=== PATIENT | male | born 1935 | race Caucasian/White ===

== ENCOUNTER → 2024-08-06 07:53 | Outpatient (REF) | payer OTHER, SELFPAY | LOC: RAD 07:53 | PROVIDERS: ATTENDING PHYSICIAN Surgery Vascular Surgery; FAMILY PHYSICIAN Student in an Organized Health Care Education/Training Program | DX: I71.00 Dissection of unspecified site of aorta (principal) | CPT/HCPCS: 71275; 74174; Q9967 ==

== ENCOUNTER 2024-12-21 22:28 | Emergency (ER) | payer OTHER, SELFPAY ==
[2024-12-21 22:30] VITALS: BP 159/83
--- NOTE | 2024-12-21 22:41 | ED.GENMED ---
History of Present Illness
General
Chief Complaint: Skin Problem
Time Seen by Provider: 12/21/24 22:40
History of Present Illness
History of Present Illness:
TIME OF INITIAL ENCOUNTER: 10:45 PM
HPI: The patient presents due to concerns of infection of the left ankle. This is localized to about a quarter sized area to the medial aspect of the distal left lower extremity above the ankle. He has been having increasing pain at the area. He
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 Larson regularly. He was seen by in file operator who noted the area of concern but was smaller at the time. No antibiotics were started at that time.
EXAM:
GENERAL: Well appearing in no distress
HEENT: Moist oral mucosa
CARDIOVASCULAR: No murmurs, normal heart rate, regular rhythm, No chest wall tenderness
PULMONARY: No respiratory distress, breath sounds are clear and equal
ABDOMEN: Soft with no peritoneal signs, no tenderness
NEUROLOGIC: Excellent strength all extremities, no coordination deficits
PSYCHIATRIC: Appropriate mental status, normal insight and judgement
EXTREMITIES: Nontender, mild bilateral lower extremity edema, moves all extremities equally, venous stasis noted the lower extremities
SKIN: There is honey crusted lesion which is foul-smelling measuring approximately a quarter sized to the medial distal aspect of the left lower extremity above the ankle, the surrounding tissue is not cellulitic in appearance but is tender to touch
NUMBER AND COMPLEXITY OF PROBLEMS ADDRESSED AT THE ENCOUNTER
� Chronic conditions affecting care: A-fib on Eliquis, prostate cancer, AAA repair, high blood pressure
� Acute Exacerbation and/or Progression of Chronic Illness: This is an acute problem
� Differential Diagnosis includes: Wound infection, cellulitis, venous stasis, arterial insufficiency
AMOUNT AND/OR COMPLEXITY OF DATA TO BE REVIEWED AND ANALYZED
� I performed an independent evaluation of and my interpretation is:
EKG:
CT:
X-rays:
Laboratory Studies: White blood cell count is normal at 7.0, hemoglobin 12.6, bicarb 31, BUN 25
Other:
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
� Clinical information was obtained by an independent historian: I spoke to daughter at bedside
� Prescriptions/Medications Considered but not given:
� Further testing considered but not performed:
RISK OF COMPLICATIONS AND/OR MORBIDITY OR MORTALITY OF PATIENT MANAGEMENT
� Social determinants of health affecting care: Lives at home
� Discussion with other providers:
� Escalation of care including admission/observation vs risk of discharge considered: The patient has a focal area of concern measuring the size of a quarter which is foul-smelling and I did remove honey crusted appearing debris
at the site. The underlying tissue was bleeding slightly indicating viable tissue. There was surrounding tenderness however there is no associated warmth or erythema.
ANY OTHER UPDATES:
The patient has excellent dopplerable pulses to DP and PT to the left foot. Will start on antibiotics. I also sent a prescription for mupirocin to the affected area and he is to follow-up with wound care. They also have an appointment coming up
with Dr. Larson.
Past History
Past History
ED Past Medical History: Arrthythmia, Cancer, HTN and Hypercholesterolemia
ED Past Surgical History: Cardiac (Aortic dissection repair November 25, 2009 , pacemaker), Tonsilectomy and Urological
Social History
Tobacco: Non-smoker
Alcohol: None
Drug: None
Personal:
Living: with family
Phy Exam
Physical Exam
Physical Exam:
See HPI
Course
Orders/Labs/Results
Orders:
Orders
12/21/24 23:02
Acetaminophen [Tylenol] 1,000 mg PO NOW STA
12/21/24 23:17
CeFAZolin 1 GRAM [Ancef] 1 gram in 5 ml IV NOW
12/21/24 23:25
Basic Metabolic Panel Urgent
Complete Blood Count/With Diff Urgent
Wound Culture [Wound/Abscess/Other Culture] Urgent
LISA Source: Ankle
Specimen Description: Left
Date Specimen was Collected: 12/21/24
Time Specimen was Collected: 23:15
12/22/24 08:00
Mupirocin [Bactroban 2% Ointment] 1 applic TOPICAL TID
Abnormal Lab Results
12/21/24
23:25
RBC 4.11 L 10^6/uL
(4.70-6.10)
Hgb 12.6 L g/dL
(13.0-18.0)
Hct 36.7 L %
(39.0-52.0)
Absolute Lymphs (auto) 1.0 L 10^3/uL
(1.2-3.4)
Absolute Monos (auto) 0.7 H 10^3/uL
(0.1-0.6)
Lymphocytes % 13.5 L %
(20.5-51.1)
Monocytes % 9.7 H %
(1.7-9.3)
Carbon Dioxide 31 H mmol/L
(22-30)
BUN 25 H mg/dl
(9-20)
Glucose 140 H mg/dl
(70-99)
12/21/24 23:25
12/21/24 23:25
Vital Signs
Initial and Last Documented VS:
Initial Vital Signs
Temp Pulse Resp BP Pulse Ox
36.5 C 87 18 159/83 97
12/21/24 22:30 12/21/24 22:30 12/21/24 22:30 12/21/24 22:30 12/21/24 22:30
Last Documented Vital Signs
Temp Pulse Resp BP Pulse Ox
36.9 C 87 18 149/74 97
12/22/24 00:23 12/21/24 22:30 12/21/24 22:30 12/22/24 00:00 12/22/24 00:15
*Critical Care Note
Total Time (30-74mins, 75-104mins- exclusive of procedures): Not Applicable
ED Attending Note
-
Portions of this chart may have been created with voice recognition software.� Occasional wrong word or��sound alike� substitutions may have occurred due to the inherent limitations of voice recognition software.
Discharge Plan
Departure
Patient Disposition: Home (Routine Discharge)
Date of Disposition: 12/22/24
Time of Disposition: 00:12
Patient with high blood pressure during this ER visit?: Yes
Discharge Problem:
Infected wound
Instructions: Wound Care (DC), BLOOD PRESSURE
Prescriptions:
New
cephalexin 500 mg tablet
500 mg PO TID Qty: 21 0RF
mupirocin 2 % ointment
1 applic topical TID Qty: 22 0RF
No Action
Eliquis 5 MG tablet
5 mg PO BID Qty: 0 0RF
levothyroxine 25 mcg Tablet
25 mcg PO DAILY
carvedilol 6.25 mg Tablet
6.25 mg PO BID
Theragen Tablet
1 tab PO BID
Referrals:
Stephanie Morris MD [Family Provider] -
Ralph Oconnell MD [Active] - Next open appointment
Activity Restrictions/Additional Instructions:
Your heart rate is normal, temperature is normal (you do not have a fever), and your white blood cell count is normal. I checked your dorsalis pedis and posterior tibial pulses to the left lower extremity and they are both normal by Doppler. I
sent a prescription for Keflex to your pharmacy. We gave you an IV dose of Ancef here. Take Tylenol for pain. Return here if worse or other concerns. I also recommend that you follow-up with Dr. Oconnell (clinical transformation specialist). A wound culture is
pending. I am also sending a prescription to your pharmacy for an antibiotic ointment to be used 3 times a day over the wound.
Interventions
Interventions:
*Risk Screen - Suicide Last Done: 12/21/24 22:32
*General Assessment Last Done: 12/21/24 22:32
*Neglect/Abuse Screening Last Done: 12/21/24 22:32
*ED- Fall Risk Assessment Last Done: 12/22/24 00:55
*ED COVID-19 Vaccine History Last Done: 12/21/24 22:32
*Nursing Disposition Last Done: 12/22/24 00:55
ED-Skin Assessment Last Done: 12/21/24 23:47
Discharge Date and Time
Discharge Date/Time: 12/22/24 00:55
Print Language: YI
[2024-12-21 23:19] VITALS: BMI 25.5
[2024-12-21 23:22] VITALS: BP 132/60
[2024-12-21] MEDS: TYLENOL 1000 MG PO (23:37)
[2024-12-21] MEDS: ANCEF 5 IV (23:44)
[2024-12-21 23:54] LABS: % Basophils 0.7 % (0-2); % Eosinophils 2.8 % (0-6); % Immature Granulocytes 0.3 % (0-0.5); % Lymphocytes 13.5 % (20.5-51.1); % Monocytes 9.7 % (1.7-9.3); Absolute Basophils 0.1 10^3/uL (0-0.2); Absolute Eosinophils 0.2 10^3/uL (0-0.7); Absolute Monocytes 0.7 10^3/uL (0.1-0.6); Absolute Neutrophils 5.1 10^3/uL (1.4-6.5); Hematocrit 36.7 % (39.0-52.0); Hemoglobin 12.6 g/dL (13.0-18.0); Mean Corp Hgb Conc. 34.3 g/dL (33.0-37.0); Mean Corpuscular Hgb 30.7 pg (27.0-31.0); Mean Corpuscular Volume 89.3 fL (80.0-94.0); Mean Platelet Volume 9.5 fL (7.4-10.4); Nucleated Red Blood Cells % 0 % (-); Platelet Count 151 10^3/uL (130-400); Red Blood Cell Count 4.11 10^6/uL (4.70-6.10); Red Cell Dist. Width 12.7 % (11.5-14.5)
[2024-12-22] VITALS: BP 149/74
[2024-12-22 00:14] LABS: Blood Urea Nitrogen 25 mg/dl (9-20); Carbon Dioxide 31 mmol/L (22-30); Chloride 103 mmol/L (98-107); Estimated Creatinine Clearance 45 ml/min; Glucose 140 mg/dl (70-99); Sodium 137 mmol/L (135-145); eGFR > 60.00
== END 2024-12-22 00:55 | disposition home or self-care (01) ==
LOC: EMR 22:28
PROVIDERS: EMERGENCY PHYSICIAN Emergency Medicine; FAMILY PHYSICIAN Student in an Organized Health Care Education/Training Program
DX: L08.9 Local infection of the skin and subcutaneous tissue, unspecified (principal); I87.8 Other specified disorders of veins; E78.00 Pure hypercholesterolemia, unspecified; I10 Essential (primary) hypertension; Z86.79 Personal history of other diseases of the circulatory system; Z95.0 Presence of cardiac pacemaker
CPT/HCPCS: 96374; 99284; 80048; 85025; 87070; 87205

== ENCOUNTER → 2024-12-24 08:07 | Outpatient (REF) | payer OTHER, SELFPAY | LOC: WOUND 08:07 | PROVIDERS: ATTENDING PHYSICIAN Surgery; FAMILY PHYSICIAN Student in an Organized Health Care Education/Training Program | DX: I83.023 Varicose veins of left lower extremity with ulcer of ankle (principal); L97.321 Non-pressure chronic ulcer of left ankle limited to breakdown of skin; I87.2 Venous insufficiency (chronic) (peripheral); I73.9 Peripheral vascular disease, unspecified; I48.91 Unspecified atrial fibrillation; Z79.01 Long term (current) use of anticoagulants | CPT/HCPCS: 97597; 99204 ==

== ENCOUNTER → 2024-12-31 10:44 | Outpatient (REF) | payer OTHER, SELFPAY | LOC: WOUND 10:44 | PROVIDERS: ATTENDING PHYSICIAN Surgery; FAMILY PHYSICIAN Student in an Organized Health Care Education/Training Program | DX: I83.023 Varicose veins of left lower extremity with ulcer of ankle (principal); L97.321 Non-pressure chronic ulcer of left ankle limited to breakdown of skin; I87.2 Venous insufficiency (chronic) (peripheral); I73.9 Peripheral vascular disease, unspecified; I48.91 Unspecified atrial fibrillation; Z79.01 Long term (current) use of anticoagulants | CPT/HCPCS: 97597 ==

== ENCOUNTER → 2025-01-04 12:52 | Outpatient (REF) | payer OTHER, SELFPAY | LOC: DHVS 12:52 | PROVIDERS: ATTENDING PHYSICIAN Surgery | DX: I83.023 Varicose veins of left lower extremity with ulcer of ankle (principal); I73.9 Peripheral vascular disease, unspecified; I87.2 Venous insufficiency (chronic) (peripheral) | CPT/HCPCS: 93922; 93971 ==

== ENCOUNTER → 2025-01-07 14:27 | Outpatient (REF) | payer OTHER, SELFPAY | LOC: WOUND 14:27 | PROVIDERS: ATTENDING PHYSICIAN Surgery; FAMILY PHYSICIAN Student in an Organized Health Care Education/Training Program | DX: I83.023 Varicose veins of left lower extremity with ulcer of ankle (principal); L97.322 Non-pressure chronic ulcer of left ankle with fat layer exposed; I87.2 Venous insufficiency (chronic) (peripheral); I73.9 Peripheral vascular disease, unspecified; I48.91 Unspecified atrial fibrillation; Z79.01 Long term (current) use of anticoagulants | CPT/HCPCS: 11042 ==

== ENCOUNTER → 2025-01-14 10:43 | Outpatient (REF) | payer OTHER, SELFPAY | LOC: WOUND 10:43 | PROVIDERS: ATTENDING PHYSICIAN Surgery; FAMILY PHYSICIAN Student in an Organized Health Care Education/Training Program | DX: I83.023 Varicose veins of left lower extremity with ulcer of ankle (principal); L97.322 Non-pressure chronic ulcer of left ankle with fat layer exposed; I87.2 Venous insufficiency (chronic) (peripheral); I73.9 Peripheral vascular disease, unspecified; I48.91 Unspecified atrial fibrillation; Z79.01 Long term (current) use of anticoagulants | CPT/HCPCS: 11042 ==

== ENCOUNTER → 2025-01-21 08:53 | Outpatient (REF) | payer OTHER, SELFPAY | LOC: WOUND 08:53 | PROVIDERS: ATTENDING PHYSICIAN Surgery; FAMILY PHYSICIAN Student in an Organized Health Care Education/Training Program | DX: I83.023 Varicose veins of left lower extremity with ulcer of ankle (principal); L97.322 Non-pressure chronic ulcer of left ankle with fat layer exposed; I87.2 Venous insufficiency (chronic) (peripheral); I73.9 Peripheral vascular disease, unspecified; I48.91 Unspecified atrial fibrillation; Z79.01 Long term (current) use of anticoagulants | CPT/HCPCS: 11042 ==

== ENCOUNTER 2025-01-25 08:46 | Inpatient (IN) | payer OTHER, SELFPAY ==
[2025-01-24] VITALS (18 sets, daily range): BP systolic 131–189; BP diastolic 66–103; BMI 25.3
--- NOTE | 2025-01-24 14:23 | ED.GENMED ---
History of Present Illness
General
Chief Complaint: Breathing Problem
Source: patient and family (Patient's daughter at bedside)
Exam Limitations: none
Time Seen by Provider: 01/24/25 13:56
Nursing documentation reviewed up to this point in time: agreed with
History of Present Illness
History of Present Illness:
Patient is an 89-year-old male with history of type A aortic dissection, atrial fibrillation on Eliquis presenting to the emergency department for evaluation of shortness of breath. Patient states that over the past few days he has noticed
shortness of breath with very minimal exertion although last night he was unable to lay down flat as he became extremely short of breath. Patient denies any associated chest pain, back pain, lightheadedness/dizziness. He denies any fever, cough,
or other infectious symptoms.
Patient is currently being treated for chronic wound on left anterior ankle likely secondary to venous insufficiency. He denies any increase in lower leg swelling or recent weight gain.
His daughter states this shortness of breath is out of character for him. States he is unable to tie his shoes or even walk a few steps due to feeling so short of breath.
Of note�patient does have a history of a type aortic dissection in 2009 which was repaired. He follows with Dr. Pina for cardiology.
Past History
Past History
ED Past Medical History: Arrthythmia, Cancer, HTN and Hypercholesterolemia
ED Past Surgical History: Cardiac (Aortic dissection repair November 25, 2009 , pacemaker), Tonsilectomy and Urological
Social History
Tobacco: Non-smoker
Alcohol: None
Drug: None
Personal:
Living: with family
Review of Systems
Review of Systems
Allergies reviewed?: Yes
All Other Systems: ROS reviewed and negative except as documented in HPI and ROS
Phy Exam
Physical Exam
Physical Exam:
Vitals: Hypertensive, tachypneic. Afebrile
General: Patient is well appearing, no acute distress
Skin: Warm and dry, no rashes or lesions
Head: Normocephalic, atraumatic
Eyes: Sclera nonicteric. EOMs intact. No nystagmus.
Throat: Protecting airway
Neck: Normal ROM, no cervical spine tenderness, no meningismus. No JVD.
Cardiac: Regular rate, irregularly irregular rhythm, no murmurs. 2+ radial pulses bilateral
Pulm: Tachypneic. Lungs clear bilaterally. No wheeze
Abdomen: Nondistended. No abdominal tenderness.
Extremities: 1+ pitting edema of right lower extremity. Left lower extremity with compression wrap in place. Palpable DP pulses bilaterally.
Neuro: AAOx3. Grossly intact.
Psychiatric: Normal affect.
Scores
Heart Failure Risk
Heart Failure Risk Score: Yes
History of Stroke or TIA: No
History of intubation for respiratory distress: No
Heart rate on ED arrival >/= 110: No
SaO2 <90% on arrival on room air: No
HR >/=110 during 3min walk test (or too ill to perform test): No
ECG has acute ischemic changes: No
Urea >/=12mmol/L (BUN 33.6mg/dL): No
Serum CO2>/=35mmol/L: No
Troponin I or T elevated to [place] Level (0.4mg/dL): No
NT-proBNP >/=5,000ng/L (5,000pg/ml): No
HF Risk Score: 0
Admission Status: LOW RISK 2.8% Consider discharge to home with f/u visit to PCP/Platen Grinder
Course
Orders/Labs/Results
Orders:
Orders
01/24/25 12:49
Electrocardiogram (*1) Urgent
Reason for Study: Shortness of Breath
EKG- Treatment ONCE
01/24/25 14:16
CMP [Comprehensive Metabolic Panel] Urgent
Complete Blood Count/With Diff Urgent
NT-proBNP Urgent
Troponin I Urgent
01/24/25 14:21
CT Chest PE Study Urgent
Comment: hx type A aortic dissection
Reason For Exam: SOB
pacemaker [Interrogate Pacemaker- Treatment] ONCE
01/24/25 14:24
COVID-19 Antigen Urgent
Source: Nasal Swab
Influenza A+B Rapid Molecular Urgent
LISA Source: Nasal Swab
Specimen Description:
01/24/25 19:24
Furosemide [Lasix] 40 mg IV NOW STA
Nitroglycerin Sublingual [Nitrostat (Sublingual)] 0.4 mg SL NOW STA
01/24/25 19:47
Troponin I Urgent
Abnormal Lab Results
01/24/25
14:16
RBC 4.24 L 10^6/uL
(4.70-6.10)
Hct 38.8 L %
(39.0-52.0)
Absolute Lymphs (auto) 0.7 L 10^3/uL
(1.2-3.4)
Absolute Monos (auto) 0.7 H 10^3/uL
(0.1-0.6)
Immature Gran % 0.6 H %
(0-0.5)
Neutrophils % 76.1 H %
(42.2-75.2)
Lymphocytes % 10.4 L %
(20.5-51.1)
Monocytes % 10.3 H %
(1.7-9.3)
BUN 21 H mg/dl
(9-20)
01/24/25 14:16
01/24/25 14:16
Vital Signs
Initial and Last Documented VS:
Initial Vital Signs
Temp Pulse Resp BP Pulse Ox
97.7 F 65 22 189/76 96
01/24/25 12:45 01/24/25 12:45 01/24/25 12:45 01/24/25 12:45 01/24/25 12:45
Last Documented Vital Signs
Temp Pulse Resp BP Pulse Ox
97.7 F 97 20 132/79 94
01/24/25 12:45 01/24/25 23:10 01/24/25 23:10 01/24/25 23:10 01/24/25 23:10
MDM/Problems Addressed
Differential Diagnosis Includes:
Not limited to: Viral illness, bronchitis, pneumonia, congestive heart failure, acute coronary syndrome, pulmonary embolism, aortic dissection, etc.
MDM/Problems Addressed:
89-year-old male with history as documented presenting with gradually worsening exertional shortness of breath over the past few days, now significantly worse when lying flat. No associated chest pain, back pain, syncope. No notable increase in
lower extremity edema. Patient hypertensive, mildly tachypneic with otherwise normal vital signs. He is not hypoxic. Physical exam as above. Differential broad at this time -consider cardiac etiology including acute coronary syndrome or
congestive heart failure versus pulmonary sources such as viral illness, bronchitis, or pneumonia. Lower suspicion for pulmonary embolism as patient is currently anticoagulated on Eliquis and compliant with medication. Given history of type I
aortic dissection�will obtain CTA chest. Will send basic labs, troponin, BNP. Will interrogate pacemaker.
Update: Labs reviewed. No leukocytosis. Chemistry unremarkable. Troponin negative at 0.020. BNP of 2930. Viral studies negative. CTA chest shows no evidence of pulmonary embolism or aortic dissection however does show findings of likely mild
CHF including cardiomegaly and mild pulmonary vascular congestion. Findings discussed with patient and family. Given suspected new onset CHF with significant dyspnea on exertion�will admit patient for further management, cardiology consult, and
echocardiogram. Patient given 40 IV Lasix and 1 sublingual nitro in emergency department. Patient accepted to hospital service in stable condition
Chronic conditions affecting care:
History of type I aortic dissection, atrial fibrillation on, hypertension
Acute Exacerbation and/or Progression of Chronic Illness:
Acutely hypertensive
*Radiology
Radiology exam reviewed: radiology read reviewed (Mild CHF, cardiomegaly)
*Pulse Oximetry
Patient hypoxic: no
*EKG
Interpreted by ED Provider?: Yes
EKG Intrepretation Date: 01/24/25
Interpretation: abnormal
Comparison EKG: changes noted
Heart Rate: 104
Rate: tachycardiac
Rhythm: sinus
[place]: left axis deviation
Interval: long QT
QRS Pattern: left vent hypertrophy
Ischemia: no ischemia
*Manager Title Interpretation
Rate: normal
Interpretation: abnormal
Heart Rate: 90
Rhythm: a-fib
*Critical Care Note
Total Time (30-74mins, 75-104mins- exclusive of procedures): Not Applicable
Data Reviewed
Review of Other/Old Records Reveals: Operative Reports (Operative report from 11/25/2009 with repair of type I aortic dissection)
Patient Management
Discussion with other providers: Hospitalist
Escalation/DeEscalation of care consider admission/obs:
Admit for further management
ED Attending Note
-
Portions of this chart may have been created with voice recognition software.� Occasional wrong word or��sound alike� substitutions may have occurred due to the inherent limitations of voice recognition software.
Discharge Plan
Departure
Patient Disposition: Admit
Date of Disposition: 01/24/25
Time of Disposition: 19:24
Presentation/result/management discussed w/ accepting MD/DO: Hospitalist
Discharge Problem:
New onset of congestive heart failure, BUCKNER (dyspnea on exertion)
Prescriptions:
No Action
Eliquis 5 MG tablet
5 mg PO BID Qty: 0 0RF
levothyroxine 25 mcg Tablet
25 mcg PO DAILY
carvedilol 6.25 mg Tablet
6.25 mg PO BID
Theragen Tablet
1 tab PO BID
acetaminophen [Tylenol Extra Strength] 500 mg Tablet
1,000 mg PO Q6HPRN PRN (Reason: mild pain)
Thyroid Support
1 cap PO DAILY
Referrals:
Stephanie Morris MD [Family Provider] -
Interventions
Interventions:
*Risk Screen - Suicide Last Done: 01/24/25 12:45
*General Assessment Last Done: 01/24/25 12:45
*Neglect/Abuse Screening Last Done: 01/24/25 14:01
*ED- Fall Risk Assessment Last Done: 01/24/25 14:01
*ED COVID-19 Vaccine History Last Done: 01/24/25 12:45
ED- Cardiac Assessment Last Done: 01/24/25 19:37
ED- Pulmonary Assessment Last Done: 01/24/25 19:37
Discharge Date and Time
Print Language: SOMALI
[2025-01-24 14:36] LABS: % Eosinophils 1.6 % (0-6); % Immature Granulocytes 0.6 % (0-0.5); % Lymphocytes 10.4 % (20.5-51.1); % Monocytes 10.3 % (1.7-9.3); % Neutrophils 76.1 % (42.2-75.2); Absolute Basophils 0.1 10^3/uL (0-0.2); Absolute Eosinophils 0.1 10^3/uL (0-0.7); Absolute Lymphocytes 0.7 10^3/uL (1.2-3.4); Absolute Monocytes 0.7 10^3/uL (0.1-0.6); Absolute Neutrophils 5.3 10^3/uL (1.4-6.5); Hematocrit 38.8 % (39.0-52.0); Hemoglobin 13.1 g/dL (13.0-18.0); Mean Corp Hgb Conc. 33.8 g/dL (33.0-37.0); Mean Corpuscular Hgb 30.9 pg (27.0-31.0); Mean Corpuscular Volume 91.5 fL (80.0-94.0); Mean Platelet Volume 9.4 fL (7.4-10.4); Nucleated Red Blood Cells % 0 % (-); Platelet Count 180 10^3/uL (130-400); Red Blood Cell Count 4.24 10^6/uL (4.70-6.10); Red Cell Dist. Width 13.6 % (11.5-14.5); White Blood Cell Count 6.9 10^3/uL (4.8-10.8)
[2025-01-24 14:55] LABS: NT-proBNP 2930 pg/ml
[2025-01-24 14:57] LABS: ALT (SGPT) 31 U/L (0-50); AST (SGOT) 39 U/L (17-59); Albumin 4.3 g/dl (3.5-5.0); Alkaline Phosphatase 73 U/L (38-126); Blood Urea Nitrogen 21 mg/dl (9-20); Calcium 9.7 mg/dl (8.4-10.2); Carbon Dioxide 30 mmol/L (22-30); Chloride 104 mmol/L (98-107); Estimated Creatinine Clearance 52 ml/min; Glucose 91 mg/dl (70-99); Potassium 4.8 mmol/L (3.5-5.1); Sodium 141 mmol/L (135-145); Total Bilirubin 1.2 mg/dl (0.2-1.3); Total Protein 7.2 g/dl (6.3-8.2); eGFR > 60.00
[2025-01-24 14:59] LABS: COVID-19 Antigen Negative (Negative)
[2025-01-24] MEDS: LASIX 40 MG IV (19:43)
[2025-01-24] MEDS: NITROSTAT (SUBLINGUAL) 0.4 MG SL (19:44)
[2025-01-24 20:29] LABS: Troponin I 0.026 ng/ml
--- NOTE | 2025-01-24 21:56 | HPS.HSE ---
Family Physician
-
Family Physician: Stephanie Morris MD
Chief Complaint
-
SOB
History of Present Illness
The patient is an 89-year-old gentleman with past medical history significant for type aortic dissection, atrial fibrillation on Eliquis, essential hypertension, hyperlipidemia, cancer who presents to the emergency department secondary to shortness
of breath that is worsening over the past several days, increased with minimal exertion last night; he was unable to lay flat at nighttime, and became increasingly short of breath. After being given an IV Lasix in the emergency department, he has
diuresed almost 2 L however has worsening dyspnea and is more tachypneic especially on exertion. His oxygen saturation is 94% on room air.
He denies chest pain no palpitations no lightheadedness no dizziness he denies fevers cough upper respiratory infections.
CT of the chest was negative for pulmonary embolism, it is a stable dissection status post surgical repair.
Troponin went from 0.020-0.026 positive delta
proBNP is 2930
ED treatment sublingual nitro x 1 Lasix 40 IV x 1
Medical History
Past Medical History
Past Medical History: Reports Arrhythmia, Cancer, HTN and Hypercholesterolemia
Past Surgical History: Reports Cardiac (Type a aortic dissection in 2009 that was repaired, pacemaker, he follows with Dr. Pina and cardiology), Tonsilectomy and Urological
Social History
Tobacco: Non-smoker
Alcohol: None
Drug: None
Personal:
Living: With Family
Family History
Family History: Not pertinent
Allergies / Home Medications
Allergies reflects when Allergies were last updated in [facility].
Home Medications with original date entered in [facility]
Allergy/Medication List:
Allergies
Allergy/AdvReac Type Severity Reaction Status Date / Time
No Known Allergies Allergy Verified 12/21/24 22:30
Home Medications
apixaban 5 mg tablet (Eliquis) 5 mg PO BID ##0 10/09/21
levothyroxine 25 mcg tablet 25 mcg PO DAILY 07/04/23
carvedilol 6.25 mg tablet 6.25 mg PO BID 12/21/24
therapeutic multivitamin 1 tab PO BID 12/21/24
Thyroid Support 1 cap PO DAILY 01/24/25
acetaminophen 500 mg tablet (Tylenol Extra Strength) 1,000 mg PO Q6HPRN PRN mild pain 01/24/25
Review of Systems
-
A 12 point ROS was completed and negative except as noted: Yes
Physical Exam
Vital Signs
Vital Signs
Temp Pulse Resp BP Pulse Ox
97.7 F 85 20 146/66 96
01/24/25 12:45 01/24/25 21:13 01/24/25 21:13 01/24/25 21:13 01/24/25 21:13
Physical Exam
General: Other (Appears in distress due to increased respiratory rate, oxygen saturation 94% on room air, tachypneic)
HEENT: NormoCephalic, Anicteric and Moist mucous membranes
Respiratory: Clear
Cardiac: S1/S2 and Regular Rhythm
GI: Soft, Non Tender and Non Distended
Musculoskeletal: No Clubbing, No Cyanosis, Edema, Left Lower Extremity, Edema, Right Lower Extremity and Other (Left lower extremity is wrapped in an Yan bandage for a chronic left lower extremity ulcer being treated outpatient, right lower
extremity 2+ pitting edema up to the knee)
Skin: Warm and Dry
Neuro: AO x 3
Psych: Calm
Laboratory Results
-
01/24/25 14:16
01/24/25 14:16
Laboratory Results
Total Bilirubin 1.2 mg/dl (0.2-1.3) 01/24/25 14:16
AST 39 U/L (17-59) 01/24/25 14:16
ALT 31 U/L (0-50) 01/24/25 14:16
Alkaline Phosphatase 73 U/L (38-126) 01/24/25 14:16
Troponin I 0.026 ng/ml D 01/24/25 19:47
Data Reviewed
-
CT Scan: Image Personally Visualized and interpreted and Report Reviewed by me
Lab Data: Other (Echocardiogram EF 61% Indeterminate diastolic function, Mild MR, Moderate AR 08/08/23)
Impression/Plan
-
IMPRESSION:The patient is an 89-year-old gentleman with past medical history significant for type aortic dissection, atrial fibrillation on Eliquis, essential hypertension, hyperlipidemia, cancer who presents to the emergency department secondary to
shortness of breath that is worsening over the past several days, increased with minimal exertion last night; he was unable to lay flat at nighttime, and became increasingly short of breath. After being given an IV Lasix in the emergency
department, he has diuresed almost 2 L however has worsening dyspnea and is more tachypneic especially on exertion. His oxygen saturation is 94% on room air.
He denies chest pain no palpitations no lightheadedness no dizziness he denies fevers cough upper respiratory infections.
CT of the chest was negative for pulmonary embolism, it is a stable dissection status post surgical repair.
Troponin went from 0.020-0.026 positive delta
proBNP is 2930
ED treatment sublingual nitro x 1 Lasix 40 IV x 1
# Acute exacerbation of CHF, new onset, associated with tachypnea despite 2 L diuresis status post 40 mg of IV Lasix
-Echocardiogram EF 61% Indeterminate diastolic function, Mild MR, Moderate AR 08/08/23
-Admit to telemetry monitoring
-Initiate oxygen therapy at 2 L and monitor respiratory status
-Initiate nitroglycerin paste
-Continue Coreg twice daily
-Cardiology consultation is appreciated
-intake and output Daily weights
-Repeat echocardiogram
# Atrial fibrillation, rate controlled
-Continue Coreg and Eliquis
# Hypothyroidism
-Check TSH
-Continue Synthroid
#Essential hypertension
- Continue Coreg
# History of abdominal aortic dissection status post surgical intervention in 2009
-Redemonstrate of chronic type A aortic dissection post ascending aortic repair, stable.
Full Code
DVT proph-Eliquis
[2025-01-25] VITALS (15 sets, daily range): BP systolic 104–155; BP diastolic 53–104; BMI 22.8
[2025-01-25] MEDS: ELIQUIS 5 MG PO ×3 (02:05→21:01)
[2025-01-25] MEDS: COREG 6.25 MG PO ×3 (02:05→21:01)
[2025-01-25] MEDS: NITRO-BID 1 INCH TOPICAL (02:06)
[2025-01-25 05:47] LABS: Hematocrit 37.9 % (39.0-52.0); Hemoglobin 12.8 g/dL (13.0-18.0); Mean Corp Hgb Conc. 33.8 g/dL (33.0-37.0); Mean Corpuscular Hgb 30.7 pg (27.0-31.0); Mean Corpuscular Volume 90.9 fL (80.0-94.0); Mean Platelet Volume 9.6 fL (7.4-10.4); Platelet Count 159 10^3/uL (130-400); Red Blood Cell Count 4.17 10^6/uL (4.70-6.10); Red Cell Dist. Width 13.5 % (11.5-14.5)
[2025-01-25] MEDS: SYNTHROID 25 MCG PO (06:08)
[2025-01-25 06:17] LABS: Troponin I 0.032 ng/ml
[2025-01-25 06:33] LABS: Blood Urea Nitrogen 22 mg/dl (9-20); Calcium 9.3 mg/dl (8.4-10.2); Carbon Dioxide 29 mmol/L (22-30); Chloride 102 mmol/L (98-107); Estimated Creatinine Clearance 47 ml/min; Glucose 84 mg/dl (70-99); HDL Cholesterol 41 mg/dl; LDL Cholesterol, Calculated 104 mg/dl; Magnesium 2.1 mg/dl (1.6-2.3); Phosphorus 5.7 mg/dl (2.5-4.5); Potassium 4.4 mmol/L (3.5-5.1); Sodium 141 mmol/L (135-145); Total Cholesterol 156 mg/dl (50-199); Triglyceride 58 mg/dl (10-149); Very Low Density Lipoprotein 11 mg/dl (0-30); eGFR > 60.00
[2025-01-25 06:37] LABS: TSH 3.76 uIU/ml (0.47-4.68)
[2025-01-25] MEDS: LASIX 40 MG IV ×2 (09:08→16:54)
--- NOTE | 2025-01-25 09:50 | PTCARENOTE ---
Received patient from ED. Patient here with new HF, receiving IV Diuretics. Pending Echo today. Has chronic LLE wound that patient goes to our wound care center weekly for. Wound Consult ordered. Dressing Intact.
--- NOTE | 2025-01-25 12:00 | WOUNDNOTE ---
KAYCEE RN NOTE: Unable to see wound consult today, nurse aware. Confirmed with wound care nurse Marni at wound center that patient's Coflex wrap can be changed tomorrow. Reviewed wound care and last photo of L leg venous ulcer. Will follow tomorrow.
--- NOTE | 2025-01-25 12:45 | CON.CAR ---
Addendum entered and electronically signed by Emerson Meyer MD 01/25/25 13:37:
I saw and examined the patient.
The CAGE SUPERVISOR or PA's note was reviewed and I agree with the note.
Comment: General: Well developed, well nourished in NAD.
Neck: Supple, no JVD, HJR, carotids +2 B/L, no bruits bilaterally.
Heart: Non displaced PMI, RRR, no murmurs, No S3, S4, no rubs.
Lungs: scattered rhonchi
Abdomen: Normal bowel sounds, soft, non-tender, non-distended.
Extremities: No clubbing, cyanosis or edema bilaterally.
Neuro: Grossly nonfocal, awake, alert and oriented x3.
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 He presents with worsening shortness of breath
and found to be in acute diastolic CHF. Will treat for CHF with IV Lasix and check echocardiogram. Also device check reveals A-fib burden 53%. He opts for rate control at present which should avoid side effects of antiarrhythmics. If rate
control becomes a problem could consider AVJ ablation. Discussed in detail with daughter at bedside
Original Note:
Consultation
Consultation Request
Date/Time Consultation Requested: 01/25/25 at 0128
Date/Time Consultation Performed: 01/25/25 at 1030
Requesting Provider: Dr. Voss
Performing Provider: Dr. Meyer
Reason for Consultation: Acute HF
Medical History
-
History of Present Illness:
Patient came to the ER yesterday with increased SOB and cardiology is consulted for acute HF. Patient's daughter called our office yesterday morning to report that the patient woke up SOB at 2 in the morning and our office advised the patient to be
evaluated in the ER. The patient lives at home with his daughter and has noticed over the last few days that he has been short of breath bending over to tie his shoes. And then when he went to bed on Friday night he felt fine but awakened to go to
the bathroom and afterwards could not lay flat in bed without being out of breath, he had to sit up in bed and swing his legs out to catch his breath, he has never had a problem like that before. Patient was brought to the ER and his proBNP was
2930. There is also evidence of heart failure on his CT scan. There is no evidence of dissection on the CT scan and of note patient does have a history of type I aortic dissection with repair back in 2009. Patient also had his Medtronic PPM
checked in the ER and it turns out that his atrial fibrillation burden is up to 53%, but had been down as low as 20% on the last device check on 08/17/2024. Patient reports increased urine output and feeling less SOB following Lasix 40 mg IV BID
since admission.
PMH:
Persistent A-fib
A-fib burden previously 20% on device check 08/17/2024 now increased to 53% by device check 01/24/2025
Chronic Eliquis OAC
HTN
Hypothyroidism
HTN
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
Medtronic PPM
Past Medical History
Past Medical History: Other (in HPI)
Past Surgical History: Cardiac (Medtronic PPM, type I/Harper type A aortic dissection repaired 11/25/2009) and Urological (Prostatectomy 2000)
Social History
Tobacco: Non-Smoker
Alcohol: None
Drug: None
Personal:
Living: With Family (Lives with his daughter)
Family History
Family History: Cancer and Hypertension
Allergies / Home Medications
Allergy/AdvReac Type Severity Reaction Status Date / Time
No Known Allergies Allergy Verified 12/21/24 22:30
�Medication �Instructions �Recorded �Confirmed �Type
apixaban 5 mg tablet (Eliquis) 5 mg PO BID ##0 10/09/21 01/24/25 Rx
levothyroxine 25 mcg tablet 25 mcg PO DAILY 07/04/23 01/24/25 History
carvedilol 6.25 mg tablet 6.25 mg PO BID 12/21/24 01/24/25 History
therapeutic multivitamin 1 tab PO BID 12/21/24 01/24/25 History
Thyroid Support 1 cap PO DAILY 01/24/25 01/24/25 History
acetaminophen 500 mg tablet 1,000 mg PO Q6HPRN PRN mild pain 01/24/25 01/24/25 History
(Tylenol Extra Strength)
Review of Systems
-
History Source: Patient and Family (Daughter)
All other systems: Negative unless noted
Physical Exam
Vital Signs
Temp Pulse Resp BP Pulse Ox
97.8 F 66 21 104/53 96
01/25/25 12:30 01/25/25 12:30 01/25/25 12:30 01/25/25 12:30 01/25/25 12:30
GEN: NAD. AAOx3
HEENT: EOMI
LUNGS: 3 L NC. CTA B/L without wheeze
CV: Afib on tele. Irreg irreg, S1/S2,no murmur
ABD: soft, BS+, NT, ND
EXT: +1 pitting B/L LE edema. Left medial calf venous stasis ulcer
NEURO: Gross non-focal
SKIN: Warm, dry and pink. No rash
Lab Results
01/25/25 05:28
01/25/25 05:28
Troponin I 0.032 ng/ml 01/25/25 05:28
Rut-E-Okqsydbxnup Pept 2930 pg/ml 01/24/25 14:16
Impression / Plan
-
PCP: Dr. Morris
Card: Dr. Lamonte Pina
Impression:
Admitted with SOB and acute HF 01/24/2025
Acute hypoxemic respiratory insufficiency
Acute HFpEF
Persistent A-fib
A-fib burden previously 20% on device check 08/17/2024 now increased to 53% by device check 01/24/2025
Chronic Eliquis OAC
HTN
Hypothyroidism
HTN
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
Medtronic PPM
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
Echo 01/25/25: Study pending
Plan:
-Patient came to the ER yesterday with increased SOB and cardiology is consulted for acute HF. Patient's daughter called our office yesterday morning to report that the patient woke up SOB at 2 in the morning and our office advised the patient to
be evaluated in the ER. The patient lives at home with his daughter and has noticed over the last few days that he has been short of breath bending over to tie his shoes. And then when he went to bed on Friday night he felt fine but awakened to go
to the bathroom and afterwards could not lay flat in bed without being out of breath, he had to sit up in bed and swing his legs out to catch his breath, he has never had a problem like that before. Patient was brought to the ER and his proBNP was
2930. There is also evidence of heart failure on his CT scan. There is no evidence of dissection on the CT scan and of note patient does have a history of type I aortic dissection with repair back in 2009. Patient also had his Medtronic PPM
checked in the ER and it turns out that his atrial fibrillation burden is up to 53%, but had been down as low as 20% on the last device check on 08/17/2024. Patient reports increased urine output and feeling less SOB following Lasix 40 mg IV BID
since admission.
-ECG reviewed by me is read as sinus tachycardia although patient on device check has been more persistent A-fib.
-Device check report reviewed and interpreted by me, A-fib burden increased to 53%, battery longevity greater than 12 years
-Patient with acute HF with presumed preserved EF, although last echo was in 2022.
-Repeat echo ordered and result pending
-Patient reports symptomatic improvement with initial attempts at IV diuresis. Patient was not taking a diuretic prior to admission. Daily weights are ordered
-Outpatient dose of Coreg 6.25 mg BID has been continued
-Patient was not previously on ELMO/ARB/ARNI/aldosterone antagonist. BP 104/53 with diuresis and usual dose of Coreg, hypotension precludes increase in medical therapy
-Will ask CM to check on the cause of Farxiga 10 mg daily, no obvious contraindication.
-Reviewed with patient and daughter that increased A-fib burden might be driving HF. Patient was previously offered an attempt at improved rhythm control with amiodarone but declined as he did not want to take the chance of medication side effects.
I reviewed with the patient and his daughter again the option of rhythm control with the addition of amiodarone and they continued to decline. We also talked about possible longer-term strategy of an AV node ablation given patient already has a
PPM in place, we talked about this being a future management option if patient has recurrent HF that we think is due to A-fib, but certainly not something that is going to be done this admission.
-Cont Eliquis 5 mg BID (age 89, Cre 1.0, wt 64 kg)
--- NOTE | 2025-01-25 13:16 | W.CARD.DEVCH ---
Cardiac Device Check
-
Device: Pacemaker
Climatologist: Medtronic
The patient's device was interrogated with assistance of the device product support sales representative followed by a complete physician review. The device had normal function. No abnormalities seen.
Medtronic DC PPM device interrogation report reviewed and interpreted by me, A-fib burden is at 53%, battery longevity greater than 12 years.
--- NOTE | 2025-01-25 13:17 | W.CHA2DS2VAS ---
[id number] Score
Score
Age in Years (65=0, 65-74=1, >/=75=2): > or = 75
Sex (Female=+1): Male
Congestive Heart Failure History (Yes=+1): Yes
Hypertension History (Yes=+1): Yes
Stroke/TIA/Thromboembolism History (Yes=+2): No
Vascular Disease History (Yes=+1): Yes
Diabetes Mellitus (Yes=+1): No
Score >/=2 is otherwise an anticoagulation candidate: 5
--- NOTE | 2025-01-25 15:22 | W.PN.HOSP.TC ---
Today's Communication/Plan
-
continue outlined plan below
Assessment / Plan
Assessment / Plan
Assessment:
Acute hypoxemic respiratory insufficiency due to CHF
- wean O2 as able
Acute HFpEF
- continue IV Lasix - requires intensive monitoring of I/Os, weights, lytes
- Echo: pending
- GDMT: Coreg. Patient was not previously on ELMO/ARB/ARNI/aldosterone antagonist as hypotension precludes.
Persistent A-fib
- continue Coreg/Eliquis
Essential HTN
- continue Coreg
Hypothyroidism - continue replacement
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
Medtronic PPM
DVT ppx: Eliquis
Code: Full
Anticipated Discharge: > 48 hours
Subjective/Interval History
-
Date of Service: January 25, 2025
SOB improving
no chest pain
Objective Data
-
Labs:
Laboratory Results
01/25/25
05:28
WBC 7.0
Hgb 12.8 L
Hct 37.9 L
Plt Count 159
Sodium 141
Potassium 4.4
Chloride 102
Carbon Dioxide 29
BUN 22 H
Creatinine 1.0
Glucose 84
Calcium 9.3
Vital Signs:
Vital Signs
Temp Pulse Resp BP Pulse Ox
97.8 F 66 21 104/53 96
01/25/25 12:30 01/25/25 12:30 01/25/25 12:30 01/25/25 12:30 01/25/25 12:30
I&O
01/24/25 01/25/25 01/26/25
06:59 06:59 06:59
Output Total 3300 / 3300 1100 / 1100
Balance -3300 / -3300 -1100 / -1100
Physical Exam
-
General: No Apparent Distress
HEENT: Normocephalic and Atraumatic
Respiratory: Clear to Auscultation; Negative Wheezes
Cardiac: Regular Rhythm and S1/S2
Musculoskeletal: Edema, Right Lower Extrem and Edema, Left Lower Extrem
Neuro: AO x 3
Psych: Calm
Data Reviewed
-
Total Time Spent with Patient (in minutes): 55
Labs: Labs Reviewed by me
[2025-01-26] VITALS (8 sets, daily range): BP systolic 96–137; BP diastolic 51–80; PULSE 69–77; O2SAT 96–97; BMI 22.4
[2025-01-26] MEDS: SYNTHROID 25 MCG PO (06:12)
[2025-01-26 07:11] LABS: Hematocrit 39.2 % (39.0-52.0); Hemoglobin 13.4 g/dL (13.0-18.0); Mean Corp Hgb Conc. 34.2 g/dL (33.0-37.0); Mean Corpuscular Hgb 30.8 pg (27.0-31.0); Mean Corpuscular Volume 90.1 fL (80.0-94.0); Mean Platelet Volume 9.5 fL (7.4-10.4); Platelet Count 166 10^3/uL (130-400); Red Blood Cell Count 4.35 10^6/uL (4.70-6.10); Red Cell Dist. Width 13.3 % (11.5-14.5); White Blood Cell Count 7.5 10^3/uL (4.8-10.8)
[2025-01-26 07:25] LABS: Blood Urea Nitrogen 28 mg/dl (9-20); Calcium 8.8 mg/dl (8.4-10.2); Carbon Dioxide 33 mmol/L (22-30); Chloride 98 mmol/L (98-107); Estimated Creatinine Clearance 42 ml/min; Glucose 98 mg/dl (70-99); Magnesium 2.1 mg/dl (1.6-2.3); Sodium 139 mmol/L (135-145); eGFR > 60.00
--- NOTE | 2025-01-26 09:14 | WOUNDNOTE ---
LEFT LOWER LEG
--- NOTE | 2025-01-26 09:14 | WOUNDNOTE ---
WON RN note: Patient admitted with CHF
See H&P for complete history.
PMH: ED Past Medical History: Arrthythmia, Cancer, HTN and Hypercholesterolemia
ED Past Surgical History: Cardiac (Aortic dissection repair November 25, 2009 , pacemaker), Tonsilectomy and Urological
Wound Location and type/assessment: Patient admitted with: L lower medial leg venous ulcer, Coflex weekly double layer wrap in use. Compared to picture viewed yesterday from wound center, ulcer much improved. + pedal pulses, trace edema. Patient
turned self to sides, sacrum and heels intact.
Appetite: Good.
Pressure redistribution devices in place: Accumax, encouraged turning, pressure ulcer prevention measures reviewed with patient and daughter at bedside, states they understand. Pillow under calves.
Plan: Coflex double layer wrap placed back on today with assist of nurse Cota. Teaching done with nurse Sosa regarding wrap and to not get wet. Will follow up at wound care center next week.
Will confirm orders with hospitalist and updated nurse.
Updated care plan and will follow as needed.
Note to case management of equipment requested for discharge: None.
Recommend follow up at wound care center upon discharge.
[2025-01-26] MEDS: COREG 6.25 MG PO ×2 (09:19→20:05)
[2025-01-26] MEDS: ELIQUIS 5 MG PO ×2 (09:19→20:05)
[2025-01-26] MEDS: LASIX 40 MG IV ×2 (09:19→16:43)
--- NOTE | 2025-01-26 09:25 | WOUNDNOTE ---
WON RN note: Patient admitted with CHF
See H&P for complete history.
PMH: ED Past Medical History: Arrthythmia, Cancer, HTN and Hypercholesterolemia
ED Past Surgical History: Cardiac (Aortic dissection repair November 25, 2009 , pacemaker), Tonsilectomy and Urological
Wound Location and type/assessment: Patient admitted with: L lower medial leg venous ulcer, Coflex weekly double layer wrap in use. Compared to picture viewed yesterday from wound center, ulcer much improved. + pedal pulses, trace edema. Patient
turned self to sides, sacrum and heels intact.
Appetite: Good.
Pressure redistribution devices in place: Accumax, encouraged turning, pressure ulcer prevention measures reviewed with patient and daughter at bedside, states they understand. Pillow under calves.
Plan: Applied adaptic, silver alginate and Coflex double layer wrap with assist of nurse Cota. Teaching done with nurse Sosa regarding wrap, stays on for a week and does not get wet, see orders. Will follow up at wound care center next week.
Will confirm orders with hospitalist.
Updated care plan and will follow as needed.
Note to case management of equipment requested for discharge: None.
Recommend follow up at wound care center upon discharge.
--- NOTE | 2025-01-26 09:30 | W.PN.HOSP.TC ---
Today's Communication/Plan
-
continue IV Lasix
wean O2
follow Cards recs
Assessment / Plan
Assessment / Plan
Echo: Normal left ventricular chamber size. Borderline left ventricular systolic function. Left ventricular ejection fraction is estimated at 50-550% and is calculated as 52% by volumetric assessment. There is Basal infero-septal
hypokinesis. Diastolic function indeterminate due to atrial fibrillation. Normal right ventricular size and function. Pacer wire seen in right ventricle. Moderately dilated left atrium and normal-sized right atrium.
Mild mitral regurgitation. Mild aortic stenosis. Peak gradient 28mmHg/Mean gradient 14mmHg. The estimated aortic valve area is 2.2cm2. Moderate aortic regurgitation. Mild tricuspid regurgitation. Mild pulmonic regurgitation.
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 ao Sinus Diameter 3.9cm - Ao STJ Diameter 3.4cm Compared to prior echocardiogram from August 08, 2023 inferobasilar wall motion abnormality is new, previously LVEF 61% by Holbrook's method of discs
without wall motion abnormality. Previously aortic valve gradients 23 and 10 mmHg with moderate aortic insufficiency. Previously aortic root at the sinus Valsalva was 4.4 cm.
Assessment:
Acute hypoxemic respiratory insufficiency due to CHF
- currently on 3L NC; wean O2 as able
Acute HFpEF
- Echo: as above
- continue IV Lasix - requires intensive monitoring of I/Os, weights, lytes
- GDMT: Coreg. Patient was not previously on ELMO/ARB/ARNI/aldosterone antagonist as hypotension precludes.
Persistent A-fib
- continue Coreg/Eliquis
Essential HTN
- continue Coreg
Hypothyroidism - continue replacement
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
Medtronic PPM
DVT ppx: Eliquis
Code: Full
Anticipated Discharge: > 48 hours
Subjective/Interval History
-
Date of Service: January 26, 2025
denies SOB or chest pain
remain on 3L NC
weight down to 63kg
Objective Data
-
Labs:
Laboratory Results
01/26/25
06:54
WBC 7.5
Hgb 13.4
Hct 39.2
Plt Count 166
Sodium 139
Potassium 4.0
Chloride 98
Carbon Dioxide 33 H
BUN 28 H
Creatinine 1.1
Glucose 98
Calcium 8.8
Vital Signs:
Vital Signs
Temp Pulse Resp BP Pulse Ox
97.8 F 75 18 137/64 98
01/26/25 08:28 01/26/25 09:19 01/26/25 08:28 01/26/25 09:19 01/26/25 08:28
I&O
01/25/25 01/26/25 01/27/25
06:59 06:59 06:59
Intake Total 240 / 240
Output Total 3300 / 3300 1800 / 1800
Balance -3300 / -3300 -1560 / -1560
Physical Exam
-
General: No Apparent Distress
HEENT: Normocephalic and Atraumatic
Respiratory: Negative Wheezes
Cardiac: Regular Rhythm and S1/S2
GI: Soft and Nontender
Musculoskeletal: Edema, Right Lower Extrem and Edema, Left Lower Extrem
Neuro: AO x 3
Psych: Calm
Data Reviewed
-
Total Time Spent with Patient (in minutes): 51
Labs: Labs Reviewed by me
--- NOTE | 2025-01-26 13:02 | W.PN.CARDCBS ---
Addendum entered and electronically signed by Marcus Ramos MD 01/26/25 14:05:
I saw and examined the patient.
The Cook Helper Dessert's note was reviewed and I agree with the note.
Comment: Briefly, 89-year-old man past medical history of persistent atrial fibrillation presenting in acute decompensated heart failure
Patient has had several months of lower extremity edema and more recently has developed significant dyspnea on exertion
Remains volume overloaded on exam and still requiring supplemental oxygen
Would continue IV Lasix twice daily and wean oxygen as able
Follow daily weights, renal function electrolytes
Transthoracic echocardiogram from 01/25/2025 showed low normal LVEF and basal inferoseptal hypokinesis
Given new regional wall motion abnormality could be considered for ischemic evaluation tentatively as an outpatient
Device interrogation shows increased burden of atrial fibrillation
Patient and family would prefer rate control strategy at this time - Continue Coreg for goal heart rate less than 110 bpm
Continue home Eliquis for cardioembolic prophylaxis
Discussed with patient's daughter [place] at bedside
Original Note:
Today's Communication / Plan
-
Cont Lasix 40 mg IV BID
Consider outpatient stress test for new WMA
Impression / Plan
-
PCP: Dr. Morris
Card: Dr. Lamonte Pina
Impression:
Admitted with SOB and acute HF 01/24/2025
Acute hypoxemic respiratory insufficiency
Acute HFpEF
Persistent A-fib
A-fib burden previously 20% on device check 08/17/2024 now increased to 53% by device check 01/24/2025
Chronic Eliquis OAC
HTN
Hypothyroidism
HTN
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
Medtronic PPM
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
Echo 01/25/25: EF 50 to 55%, basal inferoseptal hypokinesis, normal RV size and function, mild MR, mild peak/mean 28/14 mmHg and HOME 2.2 cm SQ, moderate aortic regurgitation, compared to echo from 08/08/2020 through the inferobasal WMA is new and
the EF was previously 61% and now 50 to 55%
Plan:
-Echo report reviewed by me and summarized above . EF was previously 61% and is now at 50 to 55% with new basal inferoseptal hypokinesis. Troponin normal this admission. No reports of CP. Will consider outpatient stress test following
this admission, but historically the patient has not wanted to take new medications.
-Telemetry reviewed by me 01/26/25 and remains in A-fib. Device check on 01/24/2025 indicated an A-fib burden of 53% which is up from the previous A-fib burden of 20% 07/2024. Patient was not interested in rhythm control with addition of amiodarone
due to possible long-term medication side effects.
-BP 96/51 on his usual dose of Coreg 6.25 mg BID. Daughter recalls hypotension with higher dose Coreg in the past
-Patient with PPM in place and could consider eventual AV node ablation. Patient is asymptomatic with A-fib
-Weight is down 2 lbs overnight with Lasix 40 mg IV BID
-Cre stable at 1.1, labs reviewed by me 01/26/25
-Outpatient dose of Coreg 6.25 mg BID has been continued
-Hypotension preclude addition of ELMO/ARB/ARNI/aldosterone antagonist.
-Patient does not want to add SGLT-2 due to possible side effects.
-Cont Eliquis 5 mg BID (age 89, Cre 1.0, wt 64 kg)
HPI: Patient came to the ER yesterday with increased SOB and cardiology is consulted for acute HF. Patient's daughter called our office yesterday morning to report that the patient woke up SOB at 2 in the morning and our office advised the patient
to be evaluated in the ER. The patient lives at home with his daughter and has noticed over the last few days that he has been short of breath bending over to tie his shoes. And then when he went to bed on Friday night he felt fine but awakened to
go to the bathroom and afterwards could not lay flat in bed without being out of breath, he had to sit up in bed and swing his legs out to catch his breath, he has never had a problem like that before. Patient was brought to the ER and his proBNP
was 2930. There is also evidence of heart failure on his CT scan. There is no evidence of dissection on the CT scan and of note patient does have a history of type I aortic dissection with repair back in 2009. Patient also had his Medtronic PPM
checked in the ER and it turns out that his atrial fibrillation burden is up to 53%, but had been down as low as 20% on the last device check on 08/17/2024. Patient reports increased urine output and feeling less SOB following Lasix 40 mg IV BID
since admission.
Progress Note - [employer] Specialist
Subjective
Date of Service: January 26, 2025
Feels only a bit better compared to yesterday
Objective
Labs:
01/26/25 06:54
01/26/25 06:54
Labs
Hgb 13.4 g/dL (13.0-18.0) 01/26/25 06:54
Hct 39.2 % (39.0-52.0) 01/26/25 06:54
Plt Count 166 10^3/uL (130-400) 01/26/25 06:54
Sodium 139 mmol/L (135-145) 01/26/25 06:54
Potassium 4.0 mmol/L (3.5-5.1) 01/26/25 06:54
BUN 28 mg/dl (9-20) H 01/26/25 06:54
Creatinine 1.1 mg/dL (0.7-1.3) 01/26/25 06:54
Glucose 98 mg/dl (70-99) 01/26/25 06:54
Troponins
01/24/25 01/24/25 01/25/25
14:16 19:47 05:28
Troponin I 0.020 0.026 D 0.032
01/26/25
06:54
Troponin I 0.030
Vital Signs and I&O:
Vital Signs
Temp Pulse Resp BP Pulse Ox
97.5 F 77 20 96/51 98
01/26/25 11:25 01/26/25 11:25 01/26/25 11:25 01/26/25 11:25 01/26/25 11:25
Vital Signs
Temp Pulse Resp BP Pulse Ox
97.5 F 77 20 96/51 98
01/26/25 11:25 01/26/25 11:25 01/26/25 11:25 01/26/25 11:25 01/26/25 11:25
Intake & Output
01/24/25 01/25/25 01/26/25 01/27/25
06:59 06:59 06:59 06:59
Intake Total 240 / 240
Output Total 3300 / 3300 1800 / 1800
Balance -3300 / -3300 -1560 / -1560
Physical Exam
Physical Exam
GEN: NAD. AAOx3
HEENT: EOMI
LUNGS: 3 L NC. No wheeze
CV: Afib on tele.
EXT: +1 pitting B/L LE edema. Left medial calf venous stasis ulcer
NEURO: Gross non-focal
SKIN: No rash
--- NOTE | 2025-01-26 13:20 | CM ---
Met with patient and his to obtain information for assessment and to discuss discharge planning. Patient's daughter was at bedside, Patient lives alone in a two story home with two steps to enter. Patient's daughter stated that patient has been
independent with all ADLs, personal care, dressing and bathing. He was using a cane but it looks like he may need a walker per PT. Patient's daughter does medication management and helps with cooking, cleaning, laundry and blister rust eradicator. Patient
has not had VN services. He has never been to a SNF in the past.
Patient has a prescription plan and uses, [facility] for all of his medications.
Patient's PCP is, Stephanie Sher.
Patient's daughter asked that patient have VN services including a social work specialist.
Attending updated. Will make referral.
Plan: Case management will continue to follow and assist with discharge planning. Home with VN.
[2025-01-26] MEDS: TYLENOL 1000 MG PO (13:27)
[2025-01-27] VITALS (8 sets, daily range): BP systolic 112–128; BP diastolic 56–80; PULSE 68; O2SAT 95; BMI 22.7
[2025-01-27] MEDS: SYNTHROID 25 MCG PO (08:08)
[2025-01-27] MEDS: ELIQUIS 5 MG PO ×2 (08:09→20:20)
[2025-01-27] MEDS: COREG 6.25 MG PO ×2 (08:09→20:20)
[2025-01-27] MEDS: LASIX 40 MG IV ×2 (08:09→17:19)
[2025-01-27 08:15] LABS: Blood Urea Nitrogen 35 mg/dl (9-20); Calcium 8.8 mg/dl (8.4-10.2); Carbon Dioxide 33 mmol/L (22-30); Chloride 97 mmol/L (98-107); Estimated Creatinine Clearance 43 ml/min; Glucose 85 mg/dl (70-99); Potassium 3.9 mmol/L (3.5-5.1); Sodium 138 mmol/L (135-145); eGFR > 60.00
[2025-01-27] MEDS: TYLENOL 1000 MG PO ×2 (08:24→20:21)
--- NOTE | 2025-01-27 10:15 | W.PN.HOSP.TC ---
Today's Communication/Plan
-
continue IV diuresis
Assessment / Plan
Assessment / Plan
Echo: Normal left ventricular chamber size. Borderline left ventricular systolic function. Left ventricular ejection fraction is estimated at 50-550% and is calculated as 52% by volumetric assessment. There is Basal infero-septal
hypokinesis. Diastolic function indeterminate due to atrial fibrillation. Normal right ventricular size and function. Pacer wire seen in right ventricle. Moderately dilated left atrium and normal-sized right atrium.
Mild mitral regurgitation. Mild aortic stenosis. Peak gradient 28mmHg/Mean gradient 14mmHg. The estimated aortic valve area is 2.2cm2. Moderate aortic regurgitation. Mild tricuspid regurgitation. Mild pulmonic regurgitation.
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 ao Sinus Diameter 3.9cm - Ao STJ Diameter 3.4cm Compared to prior echocardiogram from August 08, 2023 inferobasilar wall motion abnormality is new, previously LVEF 61% by Holbrook's method of discs
without wall motion abnormality. Previously aortic valve gradients 23 and 10 mmHg with moderate aortic insufficiency. Previously aortic root at the sinus Valsalva was 4.4 cm.
Assessment:
Acute hypoxemic respiratory insufficiency due to CHF
- now weaned to RA
Acute HFpEF
- Echo: as above
- continue IV Lasix - requires intensive monitoring of I/Os, weights, lytes. Possible transition to PO in 24-48 hours
- GDMT: Coreg. Patient was not previously on ELMO/ARB/ARNI/aldosterone antagonist as hypotension precludes.
Persistent A-fib
- continue Coreg/Eliquis
Essential HTN
- continue Coreg
Hypothyroidism - continue replacement
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
Medtronic PPM
DVT ppx: Eliquis
Code: Full
Anticipated Discharge: 24 - 48 hours
Subjective/Interval History
-
Date of Service: January 27, 2025
feels less SOB
now off O2
Objective Data
-
Labs:
Laboratory Results
01/27/25
06:45
Sodium 138
Potassium 3.9
Chloride 97 L
Carbon Dioxide 33 H
BUN 35 H
Creatinine 1.1
Glucose 85
Calcium 8.8
Vital Signs:
Vital Signs
Temp Pulse Resp BP Pulse Ox
98.1 F 73 20 128/63 93
01/27/25 07:00 01/27/25 07:00 01/27/25 07:00 01/27/25 08:09 01/27/25 07:00
I&O
01/26/25 01/27/25 01/28/25
06:59 06:59 06:59
Intake Total 240 / 240 480 / 480
Output Total 1800 / 1800 650 / 650
Balance -1560 / -1560 -170 / -170
Physical Exam
-
General: No Apparent Distress
HEENT: Normocephalic and Atraumatic
Respiratory: Negative Wheezes
Cardiac: Regular Rhythm and S1/S2
GI: Soft
Genito-urinary: No Costovertebral Tender
Neuro: AO x 3
Hematologic / Lymphatic: No Lymphadenopathy
Psych: Calm
Data Reviewed
-
Total Time Spent with Patient (in minutes): 41
Labs: Labs Reviewed by me
--- NOTE | 2025-01-27 12:22 | W.PN.CARDCBS ---
Addendum entered and electronically signed by Marcus Ramos MD 01/27/25 16:00:
I saw and examined the patient.
The Pump House Technician's note was reviewed and I agree with the note.
Comment: Briefly, 89-year-old man past medical history of persistent atrial fibrillation presenting in acute decompensated heart failure
Patient has had several months of lower extremity edema and more recently has developed significant dyspnea on exertion and orthopnea
Significant improvement in his volume status and is now off supplemental oxygen
Would continue IV Lasix today
Transition to p.o. Lasix 40 mg daily tomorrow a.m. and continue on discharge
Transthoracic echocardiogram from 01/25/2025 showed low normal LVEF and basal inferoseptal hypokinesis
Given new regional wall motion abnormality could be considered for ischemic evaluation as an outpatient
Device interrogation shows increased burden of atrial fibrillation
Patient and family would prefer rate control strategy at this time - Continue Coreg for goal heart rate less than 110 bpm
Continue home Eliquis for cardioembolic prophylaxis
Discussed with patient's daughter Kenya at bedside
Original Note:
Today's Communication / Plan
-
Change to Lasix 40 mg PO daily in AM, was not taking a diuretic prior to admission
Not interested in rhythm control strategy with amiodarone, cannot increase Coreg due to hypotension
Impression / Plan
-
PCP: Dr. Morris
Card: Dr. Lamonte Pina
Impression:
Admitted with SOB and acute HF 01/24/2025
Acute hypoxemic respiratory insufficiency
Acute HFpEF
Persistent A-fib
A-fib burden previously 20% on device check 08/17/2024 now increased to 53% by device check 01/24/2025
Chronic Eliquis OAC
HTN
Hypothyroidism
HTN
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
Medtronic PPM
Echo 08/08/23: EF 61%, mild concentric LVH, mild MR, mild peak/mean 23/10 mmHg and HOME 2.3 cm sq, moderate aortic regurgitation, mild TR, aortic root dilatation at sinus of Valsalva measuring 4.4 cm
Echo 01/25/25: EF 50 to 55%, basal inferoseptal hypokinesis, normal RV size and function, mild MR, mild peak/mean 28/14 mmHg and HOME 2.2 cm SQ, moderate aortic regurgitation, compared to echo from 08/08/2020 through the inferobasal WMA is new and
the EF was previously 61% and now 50 to 55%
Plan:
-Overall weight is down, but hard to say how much with bed scale one day and standing scale the next. Patient is also symptomatically improved and now on RA.
-Patient diuresed with Lasix 40 mg IV BID this admission. Will change to Lasix 40 mg PO daily in AM, orders changed by me. Patient was not taking a diuretic prior to admission.
-EF was previously 61% and is now at 50 to 55% with new basal inferoseptal hypokinesis. Troponin normal this admission. No reports of CP. Will consider outpatient stress test following this admission, but historically the patient has not wanted
to take new medications.
-Remains in A-fib on tele check by me 01/27/25. Device check on 01/24/2025 indicated an A-fib burden of 53% which is up from the previous A-fib burden of 20% 07/2024. Patient was not interested in rhythm control with addition of amiodarone due to
possible long-term medication side effects.
-Patient with PPM in place and could consider eventual AV node ablation. Patient is asymptomatic with A-fib
-Outpatient dose of Coreg 6.25 mg BID has been continued. Daughter recalls hypotension with higher dose Coreg in the past
-Cont Eliquis 5 mg BID (age 89, Cre 1.0, wt 64 kg)
-Hypotension preclude addition of ELMO/ARB/ARNI/aldosterone antagonist.
-Patient does not want to add SGLT-2 due to possible side effects.
-Patient is agreeable to VN and will arrange cardiology f/u as an outpatient.
HPI: Patient came to the ER yesterday with increased SOB and cardiology is consulted for acute HF. Patient's daughter called our office yesterday morning to report that the patient woke up SOB at 2 in the morning and our office advised the patient
to be evaluated in the ER. The patient lives at home with his daughter and has noticed over the last few days that he has been short of breath bending over to tie his shoes. And then when he went to bed on Friday night he felt fine but awakened to
go to the bathroom and afterwards could not lay flat in bed without being out of breath, he had to sit up in bed and swing his legs out to catch his breath, he has never had a problem like that before. Patient was brought to the ER and his proBNP
was 2930. There is also evidence of heart failure on his CT scan. There is no evidence of dissection on the CT scan and of note patient does have a history of type I aortic dissection with repair back in 2009. Patient also had his Medtronic PPM
checked in the ER and it turns out that his atrial fibrillation burden is up to 53%, but had been down as low as 20% on the last device check on 08/17/2024. Patient reports increased urine output and feeling less SOB following Lasix 40 mg IV BID
since admission.
Progress Note - Broodmare Foreman
Subjective
Date of Service: January 27, 2025
He is breathing better, no CP or palpitations
Objective
Labs:
01/26/25 06:54
01/27/25 06:45
Labs
Hgb 13.4 g/dL (13.0-18.0) 01/26/25 06:54
Hct 39.2 % (39.0-52.0) 01/26/25 06:54
Plt Count 166 10^3/uL (130-400) 01/26/25 06:54
Sodium 138 mmol/L (135-145) 01/27/25 06:45
Potassium 3.9 mmol/L (3.5-5.1) 01/27/25 06:45
BUN 35 mg/dl (9-20) H 01/27/25 06:45
Creatinine 1.1 mg/dL (0.7-1.3) 01/27/25 06:45
Glucose 85 mg/dl (70-99) 01/27/25 06:45
Troponins
01/24/25 01/24/25 01/25/25
14:16 19:47 05:28
Troponin I 0.020 0.026 D 0.032
01/26/25
06:54
Troponin I 0.030
Vital Signs and I&O:
Vital Signs
Temp Pulse Resp BP Pulse Ox
97.7 F 67 20 112/58 96
01/27/25 11:00 01/27/25 11:00 01/27/25 11:00 01/27/25 11:00 01/27/25 11:00
Vital Signs
Temp Pulse Resp BP Pulse Ox
97.7 F 67 20 112/58 96
01/27/25 11:00 01/27/25 11:00 01/27/25 11:00 01/27/25 11:00 01/27/25 11:00
Intake & Output
01/25/25 01/26/25 01/27/25 01/28/25
06:59 06:59 06:59 06:59
Intake Total 240 / 240 480 / 480
Output Total 3300 / 3300 1800 / 1800 650 / 650 300 / 300
Balance -3300 / -3300 -1560 / -1560 -170 / -170 -300 / -300
Physical Exam
Physical Exam
GEN: NAD. AAOx3
HEENT: EOMI
LUNGS: RA. No wheeze
CV: Afib on tele.
EXT: Trace B/L LE edema. Left medial calf venous stasis ulcer
NEURO: Gross non-focal
SKIN: No rash
[2025-01-28 03:00] VITALS: BP 126/67
[2025-01-28] MEDS: SYNTHROID 25 MCG PO (05:08)
[2025-01-28 05:47] VITALS: BMI 22.4
[2025-01-28 06:20] LABS: Blood Urea Nitrogen 40 mg/dl (9-20); Calcium 9.2 mg/dl (8.4-10.2); Carbon Dioxide 35 mmol/L (22-30); Chloride 96 mmol/L (98-107); Estimated Creatinine Clearance 39 ml/min; Glucose 87 mg/dl (70-99); Potassium 4.1 mmol/L (3.5-5.1); Sodium 139 mmol/L (135-145); eGFR 58.53
[2025-01-28 07:26] VITALS: BP 151/70
[2025-01-28] MEDS: COREG 6.25 MG PO (07:47)
[2025-01-28] MEDS: ELIQUIS 5 MG PO (07:47)
[2025-01-28] MEDS: LASIX 40 MG PO (07:48)
--- NOTE | 2025-01-28 09:44 | W.PN.CARDCBS ---
Addendum entered and electronically signed by Marcus Ramos MD 01/28/25 11:26:
I saw and examined the patient.
The Perforator Loader's note was reviewed and I agree with the note.
Comment: Briefly, 89-year-old man past medical history of persistent atrial fibrillation presenting in acute decompensated heart failure
Patient has had several months of lower extremity edema and more recently has developed significant dyspnea on exertion and orthopnea
Significant improvement in his volume status
Transition to p.o. Lasix 40 mg daily and continue on discharge
Transthoracic echocardiogram from 01/25/2025 showed low normal LVEF and basal inferoseptal hypokinesis
Given new regional wall motion abnormality could be considered for ischemic evaluation as an outpatient
Device interrogation shows increased burden of atrial fibrillation
Patient and family would prefer rate control strategy at this time - Continue Coreg for goal heart rate less than 110 bpm
Continue home Eliquis
Stable cardiac status
We will sign off, please recall as needed
Original Note:
Today's Communication / Plan
-
Continue PO lasix 40mg daily
BMP in 1 week
Continue coreg, eliquis
Follow up arranged
Impression / Plan
-
PCP: Dr. Morris
Card: Dr. Lamonte Pina
Impression:
Admitted with SOB and acute HF 01/24/2025
Acute hypoxemic respiratory insufficiency
Acute HFpEF
Persistent A-fib
A-fib burden previously 20% on device check 08/17/2024 now increased to 53% by device check 01/24/2025
Chronic Eliquis OAC
HTN
Hypothyroidism
HTN
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
Medtronic PPM
Echo 08/08/23: EF 61%, mild concentric LVH, mild MR, mild peak/mean 23/10 mmHg and HOME 2.3 cm sq, moderate aortic regurgitation, mild TR, aortic root dilatation at sinus of Valsalva measuring 4.4 cm
Echo 01/25/2025: EF 50 to 55%, basal inferoseptal hypokinesis, normal RV size and function, mild MR, mild peak/mean 28/14 mmHg and HOME 2.2 cm SQ, moderate aortic regurgitation, compared to echo from 08/08/2020 through the inferobasal WMA is new and
the EF was previously 61% and now 50 to 55%
Plan:
-presented with increased SOB, admitted with acute HF exacerbation.
-Diuresed with IV lasix 40mg BID. Transitioned to PO lasix 40mg daily in AM 01/28. Not on diuretic prior to admission.
-Weight down to 139 lbs 01/28. Creat 1.2. BMP in 1 week as OP.
-Remains on RA, ambulating the halls w/ daughter.
-EF 50-55% with mild MR and moderate AR w/ basal inferoseptal hypokinesis. Troponin normal this admission w/ no CP. Consider OP stress testing.
-Remains in afib on review of telemetry. HRs stable. Afib burden up by device check 01/24. Not interested in amiodarone for rhythm control due to possible bed bug exterminator side effects.
-Continue coreg 6.25mg BID. Previously had hypotension w/ higher doses.
-Continue AC w/ Eliquis 5mg BID.
-No ELMO/ARB/ARNI/aldosterone antagonist w/ hypotension. No SGLT2 inhibitor due to possible side effects.
-Follow up arranged. OK for discharge w/ VN.
HPI: Patient came to the ER yesterday with increased SOB and cardiology is consulted for acute HF. Patient's daughter called our office yesterday morning to report that the patient woke up SOB at 2 in the morning and our office advised the patient
to be evaluated in the ER. The patient lives at home with his daughter and has noticed over the last few days that he has been short of breath bending over to tie his shoes. And then when he went to bed on Friday night he felt fine but awakened to
go to the bathroom and afterwards could not lay flat in bed without being out of breath, he had to sit up in bed and swing his legs out to catch his breath, he has never had a problem like that before. Patient was brought to the ER and his proBNP
was 2930. There is also evidence of heart failure on his CT scan. There is no evidence of dissection on the CT scan and of note patient does have a history of type I aortic dissection with repair back in 2009. Patient also had his Medtronic PPM
checked in the ER and it turns out that his atrial fibrillation burden is up to 53%, but had been down as low as 20% on the last device check on 08/17/2024. Patient reports increased urine output and feeling less SOB following Lasix 40 mg IV BID
since admission.
Progress Note - Bleacher Operator
Subjective
Date of Service: January 28, 2025
[facility]
Objective
Labs:
01/26/25 06:54
01/28/25 05:23
Labs
Hgb 13.4 g/dL (13.0-18.0) 01/26/25 06:54
Hct 39.2 % (39.0-52.0) 01/26/25 06:54
Plt Count 166 10^3/uL (130-400) 01/26/25 06:54
Sodium 139 mmol/L (135-145) 01/28/25 05:23
Potassium 4.1 mmol/L (3.5-5.1) 01/28/25 05:23
BUN 40 mg/dl (9-20) H 01/28/25 05:23
Creatinine 1.2 mg/dL (0.7-1.3) 01/28/25 05:23
Glucose 87 mg/dl (70-99) 01/28/25 05:23
Troponins
01/26/25
06:54
Troponin I 0.030
Vital Signs and I&O:
Vital Signs
Temp Pulse Resp BP Pulse Ox
97.8 F 69 14 151/70 94
01/28/25 07:26 01/28/25 07:47 01/28/25 07:26 01/28/25 07:47 01/28/25 08:55
Vital Signs
Temp Pulse Resp BP Pulse Ox
97.8 F 69 14 151/70 94
01/28/25 07:26 01/28/25 07:47 01/28/25 07:26 01/28/25 07:47 01/28/25 08:55
Intake & Output
01/26/25 01/27/25 01/28/25 01/29/25
06:59 06:59 06:59 06:59
Intake Total 240 / 240 480 / 480 240 / 240
Output Total 1800 / 1800 650 / 650 800 / 800
Balance -1560 / -1560 -170 / -170 -560 / -560
Physical Exam
Physical Exam
GEN: No distress, awake, alert, oriented x3
HEENT: mmm
LUNGS: On RA, no wheeze
CV: irregularly irregular, 1/6 syst murmur
EXT: No clubbing, cyanosis, or edema
NEURO: Gross non-focal
SKIN: warm, dry, no rash
--- NOTE | 2025-01-28 13:08 | W.PN.HOSP.TC ---
Today's Communication/Plan
-
dc to home/VN today
Assessment / Plan
Assessment / Plan
Echo: Normal left ventricular chamber size. Borderline left ventricular systolic function. Left ventricular ejection fraction is estimated at 50-550% and is calculated as 52% by volumetric assessment. There is Basal infero-septal
hypokinesis. Diastolic function indeterminate due to atrial fibrillation. Normal right ventricular size and function. Pacer wire seen in right ventricle. Moderately dilated left atrium and normal-sized right atrium.
Mild mitral regurgitation. Mild aortic stenosis. Peak gradient 28mmHg/Mean gradient 14mmHg. The estimated aortic valve area is 2.2cm2. Moderate aortic regurgitation. Mild tricuspid regurgitation. Mild pulmonic regurgitation.
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 ao Sinus Diameter 3.9cm - Ao STJ Diameter 3.4cm Compared to prior echocardiogram from August 08, 2023 inferobasilar wall motion abnormality is new, previously LVEF 61% by Holbrook's method of discs
without wall motion abnormality. Previously aortic valve gradients 23 and 10 mmHg with moderate aortic insufficiency. Previously aortic root at the sinus Valsalva was 4.4 cm.
Assessment:
Acute hypoxemic respiratory insufficiency due to CHF
- now weaned to RA
Acute HFpEF
- Echo: as above
- dc on Oral Lasix 40mg daily per Cardiology
- GDMT: Coreg. Patient was not previously on ELMO/ARB/ARNI/aldosterone antagonist as hypotension precludes.
Persistent A-fib
- continue Coreg/Eliquis
Essential HTN
- continue Coreg
Hypothyroidism - continue replacement
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
Medtronic PPM
DVT ppx: Eliquis
Code: Full
More than 30 minutes spent in discharge including
Final examination of the patient
Summarizing hospital stay
Instructions for continuing care to all relevant caregivers
Preparation of discharge records, prescriptions, and referral forms
Total time spent (in minutes):41
Anticipated Discharge: Today
Subjective/Interval History
-
Date of Service: January 28, 2025
no complaints
Objective Data
-
Labs:
Laboratory Results
01/28/25
05:23
Sodium 139
Potassium 4.1
Chloride 96 L
Carbon Dioxide 35 H
BUN 40 H
Creatinine 1.2
Glucose 87
Calcium 9.2
Vital Signs:
Vital Signs
Temp Pulse Resp BP Pulse Ox
97.8 F 69 14 151/70 94
01/28/25 07:26 01/28/25 07:47 01/28/25 07:26 01/28/25 07:47 01/28/25 08:55
I&O
01/27/25 01/28/25 01/29/25
06:59 06:59 06:59
Intake Total 480 / 480 240 / 240
Output Total 650 / 650 800 / 800
Balance -170 / -170 -560 / -560
Physical Exam
-
General: No Apparent Distress
HEENT: Normocephalic and Atraumatic
Respiratory: Negative Wheezes
Cardiac: Regular Rhythm and S1/S2
GI: Soft and Nontender
Musculoskeletal: No Edema
Neuro: AO x 3
Hematologic / Lymphatic: No Lymphadenopathy
Psych: Calm
Data Reviewed
-
Total Time Spent with Patient (in minutes): 41
Labs: Labs Reviewed by me
--- NOTE | 2025-01-28 13:13 | W.DS.TRANS ---
DC Summary - Manager Fine Dining
-
Discharge Instructions:
Discharge Diagnosis/Procedures acute CHF exacerbation
Diet Restrict fluids to 64 oz,2 Gram Sodium
Activity As tolerated
Bathing Restrictions None
Other Services VN
Specialty Instructions Weigh Daily
Instructions: *[facility] Heart Failure Instructions
Stand-Alone Forms:
Changes to Home Medications: No
Discharge Medications:
DC Medications w/original date entered in [facility]
apixaban 5 mg tablet (Eliquis) 5 mg PO BID ##0 10/09/21
levothyroxine 25 mcg tablet 25 mcg PO DAILY Thyroid 07/04/23
carvedilol 6.25 mg tablet 6.25 mg PO BID Blood Pressure 12/21/24
therapeutic multivitamin 1 tab PO BID Supplement 12/21/24
Thyroid Support 1 cap PO DAILY Supplement 01/24/25
acetaminophen 500 mg tablet (Tylenol Extra Strength) 1,000 mg PO Q6HPRN PRN mild pain 01/24/25
furosemide 40 mg tablet 40 mg PO DAILY #30 tabs 01/28/25
Home Medication Changes
Pending Results: No
Total time spent discharging patient (in min): 41
--- NOTE | 2025-01-28 13:59 | CM ---
Addendum entered by Marlen Arias 01/28/25 15:20:
Physical therapy are recommending skilled placement, vocational case manager did reach out to patient's daughter and spoke with patient regarding physical therapy recommendations for skilled placement, skilled placement options reviewed with patient's daughter
including the changes in patient's ambulatory function, however patient and patient's daughter declined skilled placement, walker issued, and plan is to home today with [facility].
Plan; Home with [facility]
Original Note:
Patient has been cleared for discharge today and plan is to home with [facility].
Plan; Home with [facility]
[2025-01-28 15:07] VITALS: BP 136/67
--- NOTE | 2025-01-28 15:11 | VNURNOTE ---
Home Health Liaison spoke with patient at bedside to discuss [facility] nurse/therapy, visits, schedule and homebound status. Patient is agreeable and understands that visits at home will be 2-3 x per week to assess and teach medical management. He
requests we contact daughter Kenya to schedule visits. Patient is aware that [facility] will contact them for start of care in 1-2 days after discharge from . He confirms he has a scale at home and FRANCHISE MANAGER was going to wound care center.
[facility] referral accepted in [facility].
--- NOTE | 2025-01-31 11:28 | W.HF.CON ---
Heart Failure
- LV Function
Left ventricular function study result: LV Ejection fraction >/= 50%
Ejection Fraction Percentage: 50-55
- ARNI
Patient already on ARNI: No
Heart Failure ARNI Not Indicated: LV Ejection Fraction >/= 40%
- ACEI/ARB
Patient already on ACEI/ARB: No
Heart Failure ACEI/ARB Not Indicated: LV Ejection Fraction > 40%
- Beta Marilyn
Patient already on Evidence Based Beta Marilyn: Yes
- Mineralocorticord Receptor Antagonist
Patient already on MRA: No
Heart Failure MRA Not Indicated: LV Ejection Fraction > 40%
- SGLT-2 Inhibitor
Patient already on SGLT-2 Inhibitor: No
Heart Failure SGLT-2 Inhibitor Contraindication: Patient Refusal
- Afib Anticoagulation
Patient already on Anticoagulation for Afib: Yes
- NYHA CHF Classification
NYHA CHF Classification Level: Class III - Symptoms w/ min exertion, interferes w/ nml daily activity
- ACC/AHA Stage
ACC/AHA Stage: Stage C: Symptomatic Heart Failure
== END 2025-01-28 18:45 | disposition home health service (06) | DRG 291 ==
LOC: 3 WEST ACU 08:46
PROVIDERS: Nurse Practitioner Family; Physician Assistant; ADMITTING PHYSICIAN Internal Medicine; ATTENDING PHYSICIAN Internal Medicine; EMERGENCY PHYSICIAN Student in an Organized Health Care Education/Training Program; FAMILY PHYSICIAN Student in an Organized Health Care Education/Training Program; OTHER PHYSICIAN Internal Medicine Cardiovascular Disease
PROC: 4B02XSZ Measurement of Cardiac Pacemaker, External Approach (ICD-10-PCS; 2025-01-25)
DX: I11.0 Hypertensive heart disease with heart failure (principal); I50.31 Acute diastolic (congestive) heart failure; I48.19 Other persistent atrial fibrillation; R09.02 Hypoxemia; E03.9 Hypothyroidism, unspecified; Z79.890 Hormone replacement therapy; Z95.0 Presence of cardiac pacemaker; Z79.01 Long term (current) use of anticoagulants; I35.0 Nonrheumatic aortic (valve) stenosis; I08.3 Combined rheumatic disorders of mitral, aortic and tricuspid valves; Z79.899 Other long term (current) drug therapy; Z90.79 Acquired absence of other genital organ(s); E78.00 Pure hypercholesterolemia, unspecified; I87.2 Venous insufficiency (chronic) (peripheral); Z11.52 Encounter for screening for COVID-19
CPT/HCPCS: 71275; 80048; 80053; 80061; 83735; 83880; 84100; 84443; 84484; 85025; 85027; 87502; 87811; 93005; 93288; 93306; 96374; 97116; 97163; 97167; 97530; 97535; 99285; Q9967

== ENCOUNTER → 2025-02-04 09:49 | Outpatient (REF) | payer OTHER, SELFPAY | LOC: WOUND 09:49 | PROVIDERS: ATTENDING PHYSICIAN Surgery; FAMILY PHYSICIAN Student in an Organized Health Care Education/Training Program | DX: I83.023 Varicose veins of left lower extremity with ulcer of ankle (principal); L97.322 Non-pressure chronic ulcer of left ankle with fat layer exposed; I87.2 Venous insufficiency (chronic) (peripheral); I73.9 Peripheral vascular disease, unspecified; I48.91 Unspecified atrial fibrillation; Z79.01 Long term (current) use of anticoagulants | CPT/HCPCS: 97597 ==

== ENCOUNTER → 2025-02-11 09:55 | Outpatient (REF) | payer OTHER, SELFPAY | LOC: WOUND 09:55 | PROVIDERS: ATTENDING PHYSICIAN Surgery; FAMILY PHYSICIAN Student in an Organized Health Care Education/Training Program | DX: I83.023 Varicose veins of left lower extremity with ulcer of ankle (principal); L97.322 Non-pressure chronic ulcer of left ankle with fat layer exposed; I87.2 Venous insufficiency (chronic) (peripheral); I73.9 Peripheral vascular disease, unspecified; I48.91 Unspecified atrial fibrillation; Z79.01 Long term (current) use of anticoagulants | CPT/HCPCS: 99212 ==

== ENCOUNTER 2025-05-02 09:39 | Day surgery (SDC) | payer OTHER, SELFPAY | END 2025-05-02 11:10 | disposition home or self-care (01) | LOC: CATH 09:39 | PROVIDERS: ATTENDING PHYSICIAN Internal Medicine Cardiovascular Disease; FAMILY PHYSICIAN Student in an Organized Health Care Education/Training Program | DX: I48.0 Paroxysmal atrial fibrillation (principal); Z53.09 Procedure and treatment not carried out because of other contraindication; I10 Essential (primary) hypertension; E78.5 Hyperlipidemia, unspecified; I49.5 Sick sinus syndrome; Z95.0 Presence of cardiac pacemaker; Z85.46 Personal history of malignant neoplasm of prostate | CPT/HCPCS: 93005 ==

== ENCOUNTER → 2025-08-26 07:45 | Outpatient (REF) | payer OTHER, SELFPAY | LOC: RAD 07:45 | PROVIDERS: ATTENDING PHYSICIAN Surgery Vascular Surgery; FAMILY PHYSICIAN Student in an Organized Health Care Education/Training Program | DX: Z86.79 Personal history of other diseases of the circulatory system (principal) | CPT/HCPCS: 71275; 74174; Q9967 ==